=== PATIENT | male | born 1975 | race Caucasian/White ===

== ENCOUNTER 2021-05-23 10:26 | Emergency (ER) | payer BC ==
[2021-05-23 10:52] VITALS: BP 136/90; PULSE 66
[2021-05-23] MEDS ORDERED: Orphenadrine 60 MG/2 ML Inj IM ONE (10:57)
[2021-05-23] MEDS ORDERED: Cyclobenzaprine 10 MG Tab PO ONE (11:04)
--- NOTE | 2021-05-23 11:16 | EDM.PDOC ---
ED HPI GENERAL MEDICAL PROBLEM - General Chief Complaint: General Stated Complaint: NECK PAIN Time Seen by Provider: 05/23/21 11:04 Source of Information: Reports: Patient History Limitations: Reports: No Limitations - History of Present Illness INITIAL COMMENTS - FREE TEXT/NARRATIVE: Presents emergency room with spouse for acute neck pain stiffness. Patient had a busy week hiking at [place] carrying heavy packs. He notes waking up this morning with very limited range of motion with his neck tightening spasming increased pain patient feels like he may have slept wrong. He did take 600 mg of p.o. ibuprofen prior to arrival and is starting to help his neck pain. He has some radiation of neck pain down to his right upper arm stops at his elbow. No fever or cold symptoms patient can move his neck however he is tightening of his right trapezium and his SCM muscle. 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: Reports: NSAIDS, Other (see below) Other 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: biofreeze Right Posterior Neck Pain Score (Numeric/FACES): 8 - Related Data Allergies Allergy/AdvReac Type Severity Reaction Status Date / Time No Known Drug Allergies Allergy Cannot Verified 05/23/21 10:57 Remember Home Meds: Home Meds Mesalamine 4.8 gm PO DAILY 05/23/21 [History] amLODIPine Besylate [Amlodipine Besylate] 10 mg PO DAILY 05/23/21 [History] ED ROS GENERAL - Review of Systems Review Of Systems: See Below Musculoskeletal: Reports: Neck Pain, Muscle Stiffness, Other (neck muscle tightening and intermitent spasm ) ED EXAM, GENERAL - Physical Exam Exam: See Below Exam Limited By: No Limitations General Appearance: Alert, No Apparent Distress Head: Atraumatic, Normocephalic Neck: Normal Inspection, Supple, Full Range of Motion, Other (had limited ROM RO[facility] HOGGER OPERATOR, patient has pain on his right trapezium and some stiffness with his SCM muscle.) Extremities: Normal Inspection, Normal Range of Motion, Other (Some right upper arm pain radiating from his neck stops at his elbow) Neurological: Alert, Oriented, No Motor/Sensory Deficits Psychiatric: Normal Affect, Normal Mood Skin Exam: Warm, Dry, Intact Course - Vital Signs Last Recorded V/S: Last Vital Signs Temp 97.0 F 05/23/21 10:35 Pulse 66 05/23/21 10:35 Resp 16 05/23/21 10:35 BP 136/90 05/23/21 10:35 Pulse Ox 97 05/23/21 10:35 - Orders/Labs/Meds Orders: Active Orders 24 hr Category Date Time Status Cyclobenzaprine [Flexeril] Med 05/23/21 11:04 Once 20 mg PO ONETIME ONE Meds: Medications Discontinued Medications Generic Name Dose Route Start Last Admin Trade Name Leslie PRN Reason Stop Dose Admin Orphenadrine Citrate 60 mg 05/23/21 10:57 Orphenadrine 60 Mg/2 Ml Inj IM 05/23/21 10:58 ONETIME ONE - Re-Assessments/Exams Free Text/Narrative Re-Assessment/Exam: Patient given 1 dose of muscle relaxer 60 mg orphenadrine, the ibuprofen is starting to help that he took prior to arrival. No red flags with his neck pain. Return precaution discussed with patient and spouse. 05/23/21 11:21 Departure - Departure Time of Disposition: 11:17 Disposition: Home, Self-Care 01 Clinical Impression: Muscle spasms of neck, Neck pain - Discharge Information *PRESCRIPTION DRUG MONITORING PROGRAM REVIEWED*: No *COPY OF PRESCRIPTION DRUG MONITORING REPORT IN PATIENT DANI: No Instructions: Muscle Cramps and Spasms, [id number] Referrals: Arabella Barrientos MD [Primary Care Provider] - Additional Instructions: massage, heat or ice, which ever feels better, tens unit, f/u with chiropractor later this week, take Flexeril only for acute muscle spasms. it is a sedative, so no driving or drinking alcohol or taking any other sedatives. Sepsis Event Note (ED) - Evaluation Sepsis Screening Result: No Definite Risk - Focused Exam Vital Signs: Vital Signs Temp Pulse Resp BP Pulse Ox 05/23/21 10:35 97.0 F 66 16 136/90 97 - My Orders Last 24 Hours: My Active Orders 05/23/21 11:04 Cyclobenzaprine [Flexeril] 20 mg PO ONETIME ONE - Assessment/Plan Last 24 Hours: My Active Orders 05/23/21 11:04 Cyclobenzaprine [Flexeril] 20 mg PO ONETIME ONE
== END 2021-05-23 11:30 | disposition home or self-care (01) ==
LOC: KA.ED 10:26
DX: M62.838 Other muscle spasm (principal)
CPT/HCPCS: 96372; 99283; A9270-GY; J2360